=== PATIENT | female | born 1960 | race Caucasian/White ===

== ENCOUNTER 2017-02-01 06:48 | Day surgery (SDC) | payer OTHER, MEDICAID ==
[~2017-02-01 06:48] MED LIST: Buffered Lidocaine 0.9% SYRIN* 5 ML/SYR SYRINGE INTRADERM ONE
[2017-02-01] MEDS ORDERED: Clindamycin 900 MG IVPREMIX(* 900 MG/50 ML SDV IV ONE (07:07)
[2017-02-01] MEDS ORDERED: Midazolam* 1 MG/ML 2 ML VIAL (2 MG) ONE (07:47)
[2017-02-01] MEDS ORDERED: fentaNYL* 50 MCG/ML 2 ML VIAL (100 MCG VIAL) ONE (07:47)
[2017-02-01] MEDS ORDERED: Bupivacaine 0.25% SDV* 30 ML ONE (07:49)
[2017-02-01] MEDS ORDERED: Propofol* 10 MG/ML 20 ML BTL IV PUSH ONE (07:50)
[2017-02-01 08:45] VITALS: BP 106/69
--- NOTE | 2017-02-02 04:13 | OP ---
DATE OF OPERATION: 02/01/17 - FORMERLY [facility] DATE OF : 56 SURGEON: Long Galindo MD KNOT BORER: KYA Novoa ANESTHESIOLOGIST: Dr. Sue. ANESTHESIA: Local MAC. PRE-OP DIAGNOSIS: Left carpal tunnel syndrome. POST-OP DIAGNOSIS: Left carpal tunnel syndrome. OPERATIVE PROCEDURE: Left open carpal tunnel release. INDICATIONS: Latanya is a 56-year-old woman with clinical and electrodiagnostic carpal tunnel syndrome. She has been dealing with this for quite some time. She was progressing despite nonoperative treatment. I had talked to her about the risks and benefits of a carpal tunnel release. She had wanted to proceed. ESTIMATED BLOOD LOSS: 2 mL. COMPLICATIONS: None. FINDINGS: As expected. DESCRIPTION OF PROCEDURE: Latanya was seen in the preoperative holding area. The correct side, site, and procedure were identified. We came back to the operating room, where she received some anesthesia. We had a time-out and then I infiltrated the operative area with 0.25% plain Marcaine. The arm was then prepped and draped in the usual fashion and a formal time-out was performed. We exsanguinated the extremity with the Esmarch and the tourniquet was inflated to 250 mmHg. I then made a 2 to 3 cm longitudinal incision in the standard location for an open carpal tunnel release. Dissection was carried down through the subcutaneous tissue and the palmar fascia to expose the transverse carpal ligament. This was released just off the radial aspect of the hook of the hamate. The release was carried out from distal to proximal. Once we got to the proximal aspect of the incision, I released the subcutaneous tissue and retracted this volarly and ulnarly. Under direct visualization, I then used tenotomy scissors to release the remainder of the transverse carpal ligament and the distal antebrachial fascia to a level several centimeters proximal to the wrist flexion crease. I then checked the decompression proximally and distally. There were a few more bands distally, which we released. I released a little bit more of the palmar fascia distally. Once there was absolutely no compression on the nerve, we went ahead and irrigated out the wound. Skin was then closed with 4-0 nylon suture. Wound was dressed with Xeroform, 4x4's, sterile Webril, and an Chet bandage. Tourniquet was deflated. The hand pinked up immediately. She was then taken to the recovery room in stable condition. [id number]/[facility] #: [id number] MAX
== END 2017-02-01 09:05 | disposition home or self-care (01) ==
LOC: OREAST 06:48
PROVIDERS: ATTEND Orthopaedic Surgery Hand Surgery
DX: G56.02 Carpal tunnel syndrome, left upper limb (principal); G47.33 Obstructive sleep apnea (adult) (pediatric); J44.9 Chronic obstructive pulmonary disease, unspecified; M32.9 Systemic lupus erythematosus, unspecified; F17.200 Nicotine dependence, unspecified, uncomplicated; M79.7 Fibromyalgia; I10 Essential (primary) hypertension; E03.9 Hypothyroidism, unspecified; Z88.5 Allergy status to narcotic agent; Z88.0 Allergy status to penicillin
CPT/HCPCS: J2250; J2704; J3010

== ENCOUNTER 2017-04-02 08:22 | Day surgery (SDC) | payer OTHER, MEDICAID ==
[2017-04-02] MEDS ORDERED: Midazolam* 1 MG/ML 5 ML VIAL (5 MG) ONE (09:20)
[2017-04-02] MEDS ORDERED: fentaNYL* 50 MCG/ML 2 ML VIAL (100 MCG VIAL) ONE (09:20)
[2017-04-02] MEDS ORDERED: Bupivacaine 0.25% SDV* 30 ML ONE (09:42)
[2017-04-02] MEDS ORDERED: Propofol* 10 MG/ML 20 ML BTL IV PUSH ONE (09:55)
[2017-04-02 10:30] VITALS: BP 113/67
--- NOTE | 2017-04-02 16:05 | OP ---
DATE OF OPERATION: 03/29/17 - [facility] DATE OF : 56 SURGEON: Long Galindo MD. PALLETIZER: KYA Solorzano. ANESTHESIOLOGIST: Dr. Goncalves. ANESTHESIA: Local MAC. PRE-OP DIAGNOSIS: Right carpal tunnel syndrome. POST-OP DIAGNOSIS: Right carpal tunnel syndrome. OPERATIVE PROCEDURE: Right open carpal tunnel release. INDICATIONS: Latanya has done well with the left carpal tunnel release. She has similar symptoms on the right. We talked about risks and benefits. She had elected to proceed. ESTIMATED BLOOD LOSS: 2 mL. COMPLICATIONS: None. FINDINGS: As expected. DESCRIPTION OF PROCEDURE: Latanya was seen in the preoperative holding area and the correct side, site, and procedure were identified. We came back to the operating room where she got some anesthesia and then we re-infiltrated the operative area with 0.25% plain Marcaine. The arm was then prepped and draped in the usual fashion and a formal time-out was performed. I began by making a standard 2 to 3 cm incision in the standard location for an open carpal tunnel release. Dissection was carried down through the subcutaneous tissue and palmar fascia. The transverse carpal ligament was released just off the radial aspect of the hook of the hamate. The release was carried from distal to proximal. When I got proximal, I released the subcutaneous tissue and fascia and retracted this volarly and ulnarly with Jorge retractor. I then, under direct visualization, released the rest of the transverse carpal ligament and the distal antebrachial fascia with the tenotomy scissors to a level 7 cm proximal to the wrist flexion crease. I gently released proximally and distally. Everything looked good, so we irrigated out the wound. Skin was closed with 4-0 nylon suture. The wound was dressed with Xeroform, 4x4's, sterile Webril, and Chet bandage. Tourniquet was deflated. Hand pinked up immediately. The arm has been exsanguinated with the Esmarch and the tourniquet inflated to 250 mmHg prior to making skin incision. She was woken up and taken to the recovery room in stable condition. [id number]/[facility] #: [id number] MTDD
== END 2017-04-02 11:13 | disposition home or self-care (01) ==
LOC: OREAST 08:22
PROVIDERS: ATTEND Orthopaedic Surgery Hand Surgery
DX: G56.01 Carpal tunnel syndrome, right upper limb (principal); F17.210 Nicotine dependence, cigarettes, uncomplicated; I10 Essential (primary) hypertension; J45.909 Unspecified asthma, uncomplicated; E03.9 Hypothyroidism, unspecified
CPT/HCPCS: J2250; J2704; J3010

== ENCOUNTER 2017-12-24 06:29 | Day surgery (SDC) | payer OTHER ==
[~2017-12-24 06:29] MED LIST changes: +Famotidine IV* 10 MG/ML 2 ML (20 mg) IV ONE; +Levalbuterol 0.63MG/3ML NEB* UNIT OF USE INH ONE
[2017-12-24] MEDS ORDERED: Famotidine IV* 10 MG/ML 2 ML (20 mg) ONE (06:50)
[2017-12-24] MEDS ORDERED: Buffered Lidocaine 0.9% SYRIN* 5 ML/SYR SYRINGE ONE (06:50)
[2017-12-24] MEDS ORDERED: Clindamycin 900 MG IVPREMIX(* 900 MG/50 ML SDV IV ONE (06:50)
[2017-12-24] MEDS ORDERED: Levalbuterol 0.63MG/3ML NEB* UNIT OF USE INH ONE (06:50)
[2017-12-24] MEDS ORDERED: Midazolam* 1 MG/ML 5 ML VIAL (5 MG) ONE (07:29)
[2017-12-24] MEDS ORDERED: fentaNYL* 50 MCG/ML 2 ML VIAL (100 MCG VIAL) ONE (07:29)
[2017-12-24] MEDS ORDERED: Bupivacaine 0.25% SDV* 30 ML ONE (07:55)
[2017-12-24] MEDS ORDERED: DiMENhydriNATE IV* 50 MG/ML VIAL ONE (07:58)
[2017-12-24] MEDS ORDERED: Dexamethasone IV* 4 MG/ML 1 ML (4 MG) ONE (07:58)
[2017-12-24] MEDS ORDERED: Ketorolac INJ* 30 MG/ML 1 ML VIAL ONE (07:58)
[2017-12-24] MEDS ORDERED: KETAMINE HCL* 50 MG/ML 10 ML VIAL ONE (07:58)
[2017-12-24] MEDS ORDERED: Propofol* 10 MG/ML 20 ML BTL IV PUSH ONE (07:58)
[2017-12-24] MEDS ORDERED: Lidocaine 2% PF * 5 ML VIAL ONE (07:59)
[2017-12-24] MEDS ORDERED: DiMENhydriNATE IV* 50 MG/ML VIAL IV PUSH PRN (08:38)
[2017-12-24] MEDS ORDERED: HYDROcodone/ACETAMIN 5-325 MG* 1 TAB PO PRN (08:38)
[2017-12-24] MEDS ORDERED: Naloxone* 0.4 MG/ML 1 ML VIAL IV PRN (08:38)
[2017-12-24] MEDS ORDERED: HYDROmorphone INJ* 1 MG/ML CARPUJECT SYRINGE ONE (08:47)
[2017-12-24] MEDS ORDERED: HYDROcodone/ACETAMIN 5-325 MG* 1 TAB ONE (10:23)
[2017-12-24] MEDS ORDERED: HYDROmorphone INJ* 2 MG/ML CARPUJECT SYRINGE ONE (10:23)
[2017-12-24] MEDS: HYDROmorphone INJ* 1 MG/ML CARPUJECT SYRINGE IV PRN ×4 (10:25→10:47)
[2017-12-24 12:25] VITALS: BP 107/68
--- NOTE | 2017-12-25 04:37 | OP ---
DATE OF OPERATION: 12/24/17 - FOR[facility] DATE OF : 56 SURGEON: Long Galindo MD LOCOMOTIVE SUPERVISOR: KYA Novoa. An life science research assistant was needed for the procedure aid in positioning of the arm and retraction. ANESTHESIOLOGIST: Dr. Mendieta. ANESTHESIA: General. PRE-OP DIAGNOSES: 1. Left wrist ulnar impaction syndrome. 2. Left wrist extensor carpi ulnaris tenosynovitis. POST-OP DIAGNOSES: 1. Left wrist ulnar impaction syndrome. 2. Left wrist extensor carpi ulnaris tenosynovitis. OPERATIVE PROCEDURE: 1. Left wrist diagnostic arthroscopy with partial synovectomy and central TFCC tear debridement. 2. Left extensor carpi ulnaris tendon sheath release with extensive tenosynovectomy of the tendon and groove deepening with repair of the retinaculum. 3. Left ulnar shortening osteotomy with TriMed ulnar shortening osteotomy system. INDICATIONS: Latanya is 57-year-old. She is having significant ulnar-sided wrist pain that has persisted for many months despite injections and other nonoperative treatments. She is not getting better. I had talked to her about her options. We had obtained an MRI. She had tendonitis of the right shallow groove in the 6th dorsal compartment as well as significant ulnar impaction syndrome. She wants to proceed with surgery. ESTIMATED BLOOD LOSS: 5 mL. COMPLICATIONS: None. FINDINGS: See above and below. DESCRIPTION OF PROCEDURE: Latanya was seen in the preoperative holding area. The correct site, side, and procedure were identified. We came back to the operating room where the arm was prepped and draped in the usual fashion. A time-out was performed. I placed the arm in the Acumed traction tower. The arm was exsanguinated with Esmarch and the tourniquet was inflated to 250 mmHg. I drilled a 3-4 portal with an 11 blade followed by the mosquito and then the trocar was introduced into the portal followed by the camera. I began the diagnostic arthroscopy. The radial side of the structures all looked intact. I came ulnar and there was quite a bit of dorsal synovitis. I, therefore, carried 4- 5 portal in a similar fashion. The shaver was introduced into the portal and the dorsal synovitis was excised in its entirety. This provided much better view of the TFCC. A central perforation was seen. The distal end of the ulna was prominent. In this particular case, it was too tight and so I had to insert my camera to the 4-5 portal. I developed a 6R portal in the similar fashion. I debrided the TFCC tear with the combination of the biters and the shaver. There was degeneration of the distal end of the ulna and you could see where it had been impacting. The under surface of the proximal ulnar lunate actually looked okay without any delaminated areas devoid of cartilage. Once I had completed the TFCC debridement, I retrieved the arthroscopic equipment. The arm taken out of the traction tower. I then incorporated the 6R portal into a longitudinal incision of the 6th dorsal compartment tendon sheath. Dissection was carried down and care was taken not to enter the ulnar sensory nerve. I then made an incision over the radial aspect of the 6th dorsal compartment. Abundant tenosynovitis immediately protruded. I went ahead and performed an extensive tenosynovectomy of the 6th dorsal compartment. At this point, I examined the groove. It was very shallow. I therefore brought in the 3 mm smiley and then burred down the groove to make it much deeper. I then placed some bone wax where I had burred down the groove. I then repaired the 6th dorsal compartment retinaculum with 4-0 Ethibond suture. The wound was irrigated down and closed with 4-0 Monocryl subcuticular suture. Lastly, I made an 8 cm incision over the ulnar subcutaneous border. Dissection was carried down the periosteum in between the ECU and FCU was incised longitudinally and subperiosteal flaps were created exposing the ulnar shaft. I brought in my TriMed ulnar shortening osteotomy plate and this was clamped into place. I put 1 screw in the end of the oblong hole and then 3 cortical screws on the other side. The 5 mm guide was selected and pinned into place. The first osteotomy was made. I then selected cutting block B and pinned that into place. The second osteotomy was made, a 5 mm wedge of bone was excised. The compression clamp was then pinned into place and the osteotomy was compressed until it was completely compressed. The screw in the oblong hole was then re-tightened. I then brought the guide for the lag screw and clamped it into place. The lag screw was drilled, tapped and then 60 mm lag screw was placed loosening the screw in the oblong hole. I had a final tightening of the lag screw. Excellent compression was generated across the osteotomy. Lastly, I placed 2 additional cortical screws proximal to the oblong hole. The fluoroscopy was checked. There was nice alignment and compression across the osteotomy and the alignment at the wrist. I irrigated out the wound. The periosteum was closed over the plate with a 3-0 Vicryl suture. Subcutaneous tissue was reapproximated 3-0 Vicryl suture. The skin was closed with 4-0 Monocryl and Steri-Strips. The portal sites were closed with Steri-Strips. The area was all infiltrated with 0.25% plain Marcaine. The wounds were dressed with Xeroform, 4x4, sterile Webril and a sugar tong splint was applied. The patient was then woken up and taken to the recovery room in stable condition. [id number]/[facility] #: [id number] MAX
--- NOTE | 2017-12-25 12:52 | RAD ---
CPT II Codes: G9500 INDICATION: Left ulnar fracture TECHNIQUE: Intraoperative fluoroscopy was provided during ORIF left ulna. FINDINGS: 7 spot films depict application of a plate and screw fixator at the metaphysis of the left ulna.. Fluoroscopy time: 19 seconds IMPRESSION: As above.
== END 2017-12-24 13:44 | disposition home or self-care (01) ==
LOC: OR 06:29
PROVIDERS: ATTEND Orthopaedic Surgery Hand Surgery
DX: M65.832 Other synovitis and tenosynovitis, left forearm (principal); M85.832 Other specified disorders of bone density and structure, left forearm; M24.832 Other specific joint derangements of left wrist, not elsewhere classified; E07.9 Disorder of thyroid, unspecified; F32.9 Major depressive disorder, single episode, unspecified; M41.9 Scoliosis, unspecified; M79.7 Fibromyalgia; F17.210 Nicotine dependence, cigarettes, uncomplicated
CPT/HCPCS: 76000; C1713; C1776; J1100; J1170; J1240; J1885; J2250; J2704; J3010